=== PATIENT | male | born 1970 | race Caucasian/White ===

== ENCOUNTER 2023-06-17 13:43 | Outpatient (CLI) | payer BC | END 2023-06-17 13:44 | disposition home or self-care (01) | LOC: MRI 13:43 | PROVIDERS: ATTEND Neurological Surgery | DX: M47.22 Other spondylosis with radiculopathy, cervical region (principal); M50.122 Cervical disc disorder at C5-C6 level with radiculopathy; M48.02 Spinal stenosis, cervical region | CPT/HCPCS: 72050; 72141 ==

== ENCOUNTER 2023-06-30 14:46 | Outpatient (CLI) | payer BC ==
[2023-06-30 15:43] LABS: Hematocrit 43.5 % (38.8-50.0); Mean Corpuscular HGB CONC 34.5 g/dL (32.0-36.0); Mean Corpuscular Hemoglobin 31.4 pg (27.0-33.0); Mean Corpuscular Volume 91.2 fl (81.2-95.1); Mean Platelet Volume 9.8 fl (7.4-10.4); Platelet Count 284 10x3/uL (150-450); RBC Distribution Width 12.3 % (11.5-14.5); Red Blood Cell (RBC) Count 4.77 10x6/uL (4.32-5.72); White Blood Cell (WBC) Count 9.8 10x3/uL (3.5-10.5)
[2023-06-30 15:53] LABS: PTT 26.9 sec (22.0-33.0); Prothrombin Time 10.5 sec (9.5-12.1)
== END 2023-06-30 14:47 | disposition home or self-care (01) ==
LOC: LABBT 14:46
PROVIDERS: ATTEND Neurological Surgery
DX: Z01.818 Encounter for other preprocedural examination (principal); M50.123 Cervical disc disorder at C6-C7 level with radiculopathy
CPT/HCPCS: 85027; 85610; 85730; 93005; 93010

== ENCOUNTER 2023-07-05 05:44 | Day surgery (SDC) | payer BC ==
[2023-06-30 15:18] VITALS: BMI 27.1
[2023-07-05] MEDS ORDERED: Fentanyl 250 MCG/5 ML VIAL ONE ×2 (06:09→10:07)
[2023-07-05] MEDS ORDERED: Thrombin 5000 UNITS/5 ML VIAL ONE (06:10)
[2023-07-05] MEDS ORDERED: Vancomycin 1 GM VIAL ONE (06:10)
[2023-07-05] MEDS ORDERED: CEFAZOLIN 2 GM VIAL ONE (06:37)
[2023-07-05] MEDS ORDERED: Sodium Chloride 0.9% 100 ML ONE (06:37)
[2023-07-05] MEDS ORDERED: Ondansetron PF 4 MG/2 ML Vial ONE (06:57)
[2023-07-05] MEDS ORDERED: PROPOFOL 200 MG/20 ML VIAL ONE (06:57)
[2023-07-05] MEDS ORDERED: Rocuronium Bromide 10 MG/ML (10ML VIAL) ONE (06:57)
[2023-07-05] MEDS ORDERED: PHENYLEPHRINE-NS 100 MCG/ML 10 ML SYRINGE ONE (06:57)
[2023-07-05] MEDS ORDERED: Dexamethasone 20 MG/5 ML VIAL ONE (06:57)
[2023-07-05] MEDS ORDERED: Lidocaine 1% PF 5 ML VIAL ONE (06:57)
[2023-07-05] MEDS ORDERED: ePHEDrine Sulfate 50 MG/10 ML VIAL ONE (06:57)
[2023-07-05] MEDS ORDERED: Glycopyrrolate 0.2 MG/ML 5 ML SYRINGE ONE (06:57)
[2023-07-05] MEDS ORDERED: Tamsulosin HCl 0.4 MG CAP ONE (09:58)
[2023-07-05] MEDS ORDERED: fentaNYL 50 mcg/mL 1 mL Vial ONE (10:07)
== END 2023-07-05 12:00 | disposition home or self-care (01) ==
LOC: SDC 05:44
PROVIDERS: ATTEND Neurological Surgery
PROC: 0RG1070 Fusion of Cervical Vertebral Joint with Autologous Tissue Substitute, Anterior Approach, Anterior Column, Open Approach (ICD-10-PCS; principal; 2023-07-05)
DX: M50.123 Cervical disc disorder at C6-C7 level with radiculopathy (principal); E78.00 Pure hypercholesterolemia, unspecified; Z79.899 Other long term (current) drug therapy; Z90.49 Acquired absence of other specified parts of digestive tract
CPT/HCPCS: C1713; J1100; J2405; J2704; J3010; J3370; J3490